=== PATIENT | male | born 1980 | race Two or more races ===

== ENCOUNTER 2024-02-29 15:36 | Emergency (ER) | payer BC, OTHER ==
[~2024-02-29] VITALS: Ht 152.4 cm; Wt 100.0 kg
[2024-02-29] VITALS (7 sets, daily range): BP systolic 57–80; BP diastolic 31–39; PULSE 67–168; RESP 15–18; TEMP 98.7; O2SAT 100
[2024-02-29] MEDS ORDERED: ATROPINE SULF 1 MG/10ml SYR IV ONE (15:37)
[2024-02-29] MEDS: EPINEPHrine HCL 250 ML IV SCH (16:08)
[2024-02-29 16:34] LABS: Hematocrit 46.4 % (41.0-53.0); Hemoglobin 15.5 g/dL (13.5-17.5); Mean Corpuscular Hemoglobin 31.9 pg (28.0-32.0); Mean Corpuscular Hgb Conc. 33.5 g/dL (32.0-36.0); Mean Corpuscular Volume 95.3 fL (80.0-100.0); Red Blood Cells 4.87 10^6/uL (4.5-5.90); Red Cell Distribution Width 13.1 % (11.8-14.3); White Blood Cell 11.5 10^3/uL (4.4-10.8)
[2024-02-29] MEDS: NOREPINEPHRINE 8 MG/250ML KIT 250 ML IV SCH (16:43)
[2024-02-29] MEDS: NOREPINEPHRINE 8 MG/250ML KIT 250 ML IV ONE (16:49)
[2024-02-29] MEDS: EPINEPHrine HCL 250 ML IV ONE (16:49)
[2024-02-29] MEDS: EPINEPHrine HCL 1 MG/10 ML SYRG ONE (16:49)
[2024-02-29 16:55] LABS: Alanine Aminotransferase 311 U/L (7-40); Albumin 3.9 g/dL (3.2-4.8); Alkaline Phosphatase 113 U/L (46-116); Anion Gap 14 (5-15); Aspartate Aminotransferase 290 U/L (13-40); BUN/Creatinine Ratio 9.5 (10.0-20.0); Bilirubin, Total 0.3 mg/dL (0.2-1.0); Blood Alcohol 297.3 mg/dL (<10); Blood Urea Nitrogen 13 mg/dL (9-23); Calcium 8.6 mg/dL (8.5-10.1); Carbon Dioxide 20 mmol/L (20-30); Chloride 103 mmol/L (98-107); Potassium 3.5 mmol/L (3.5-5.1); Sodium 137 mmol/L (136-145); Total Protein 6.2 g/dL (5.7-8.2)
[2024-02-29 16:56] LABS: Basophils % (manual) 0 (0.0-2.0); Blast Cells 0; Eosinophils % (manual) 0 (0-7); Metamyelocytes % 0; Myelocytes % 0; Promyelocytes % 0; Reactive Lymphocytes 0
[2024-02-29 17:06] LABS: Glucose 413 mg/dL (74-106); Lactic Acid w/Reflex 10.1 mmol/L (0.4-2.0)
[2024-02-29] MEDS: PHENYLEPHRINE IV 250 ML IV ONE (17:46)
[2024-02-29 17:48] LABS: Band Neutrophils % (manual) 1; Lymphocytes % (manual) 48 (10.0-50.0); Monocytes % (manual) 6 (0-12); Platelet Estimate Adequate
[2024-02-29] MEDS ORDERED: PHENYLEPHRINE IV 250 ML IV SCH (18:00)
[2024-02-29] MEDS ORDERED: DOPamine 1600MCG/ML D5W 250 ML IV SCH (18:00)
[2024-02-29] MEDS ORDERED: PIPERACILLIN-TAZOB 3.375GM 100 ML IV ONE (18:15)
[2024-02-29] MEDS: CALCIUM CHLOR(10%) 100MG/ML 10ML SYRINGE IV ONE (19:34)
[2024-02-29] MEDS: SODIUM BICARB 8.4% 50Meq/50ml SYR INJ ONE (19:34)
[2024-02-29] MEDS: VASOPRESSIN 20 UNIT/ML ONE (19:52)
[2024-02-29 19:55] LABS: Amphetamine Screen, Urine Neg (NEGATIVE)
[2024-02-29 19:56] LABS: Barbiturate Scree,Urine Neg (NEGATIVE); Benzodiazephine Screen, Urine Neg (NEGATIVE); Cannabinoid Screen, Urine Neg (NEGATIVE); Cocaine Screen, Urine Neg (NEGATIVE); Opiate Scree,Urine Neg (NEGATIVE); Phencyclidine Screen, Urine Neg (NEGATIVE)
[2024-02-29] MEDS: VASOPRESSIN 20 UNITS in SODIUM CHL 0.9% 99 ML IV SCH (20:00)
[2024-02-29] MEDS: CALCIUM CHL 100MG/ML 1,000 MG in D5W 5% 100 ML IV ONE (20:15)
[2024-02-29] MEDS: SODIUM BICARB 8.4% 50Meq/50ml SYR Vial IV ONE (20:15)
[2024-02-29] MEDS: TETANUS-DIPTH-ACEL PERTUSSIS 0.5ML SYR Tdap IM ONE (21:28)
== END 2024-02-29 21:40 | disposition short-term general hospital (02) ==
LOC: EDBD 15:36 → ER 15:36
DX: S22.43XA Multiple fractures of ribs, bilateral, initial encounter for closed fracture (principal); I46.9 Cardiac arrest, cause unspecified; J18.1 Lobar pneumonia, unspecified organism; F10.10 Alcohol abuse, uncomplicated; Y90.8 Blood alcohol level of 240 mg/100 ml or more; X58.XXXA Exposure to other specified factors, initial encounter; Y93.89 Activity, other specified; Y92.89 Other specified places as the place of occurrence of the external cause; Y99.8 Other external cause status
CPT/HCPCS: 31500; 36415; 36430; 36556; 70450; 71045; 71250; 72125; 74176; 80053; 80307; 80320; 82962; 83605; 84484; 85007; 85027; 86850; 86900; 86901; 86920; 90471; 90715; 92950; 96365; 99291; 99292; J0171; J1265; J2310; J2370; P9016; 96375; J7060